=== PATIENT | male | born 1980 | race African-American/Black ===

== ENCOUNTER 2020-09-29 11:43 | Emergency (ER) | payer OTHER ==
[~2020-09-29] VITALS: Ht 188 cm; Wt 126.6 kg
[2020-09-29 11:47] VITALS: BP 130/82; Ht 188 cm; Wt 126.6 kg
== END 2020-09-29 13:27 | disposition left against medical advice (07) ==
LOC: ED 11:43
DX: M25.511 Pain in right shoulder (principal); M10.9 Gout, unspecified